=== PATIENT | male | born 1955 | race Two or more races ===

== ENCOUNTER 2020-10-17 07:14 | Emergency (ER) | payer MEDICARE, MEDICAID ==
[~2020-10-17] VITALS: Ht 167.6 cm; Wt 68.9 kg
--- NOTE | 2020-10-17 07:20 | NUR ---
PT BIBRA FROM HOME. PER EMS REPORT PT WAS NOTED BY FAMILY SHORT OF BREATH W WHEEZING. PT APPEARS LETHARGIC. SPANISH SPEAKING. UNABLE TO PROVIDE ANY FURTHER INFORMATION AT THIS TIME. VITALS STABLE W/ SPO2 READING 97% ON RA. AWAITING MD BRUKETT.
--- NOTE | 2020-10-17 07:21 | NUR ---
DR SINGH AT BEDSIDE FOR EVAL.
[2020-10-17] MEDS ORDERED: methylPREDNISolone SOD SUCC 125 MG/2ML VIAL IV ONE (07:30)
[2020-10-17] MEDS ORDERED: IPRATROPIUM NEB FS 0.5 MG/2.5 ML AMPUL.NEB NEB ONE (07:30)
[2020-10-17] MEDS ORDERED: ALBUTEROL FS 2.5 MG/3 ML VIAL.NEB CONTNEB ONE (07:30)
[2020-10-17] MEDS ORDERED: methylPREDNISolone SOD SUCC 125 MG/2ML VIAL ONE (07:35)
--- NOTE | 2020-10-17 07:35 | NUR ---
IV LINE STARTED BLOOD DRAWN AND SENT TO LAB.
[2020-10-17 07:43] LABS: EOSINOPHILS % (AUTO) 6.7 % (0.0-6.0); HEMATOCRIT 40 % (39-51); HEMOGLOBIN 13.7 g/dL (13.5-17.5); LYMPHOCYTES # (AUTO) 1.2 /CMM (0.8-4.8); LYMPHOCYTES % (AUTO) 30.9 % (20.0-44.0); MEAN CORPUSCULAR HGB CONC 35 g/dl (31.0-36.0); MEAN CORPUSCULAR VOLUME 92 fL (80-96); MONOCYTES # (AUTO) 0.4 /CMM (0.1-1.30); MONOCYTES % (AUTO) 9.2 % (2.0-12.0); NEUTROPHILS # (AUTO) 2.1 /CMM (1.8-8.9); NEUTROPHILS % (AUTO) 52.2 % (43.0-81.0); PLATELET COUNT (AUTO) 160 /CMM (150-450); RED BLOOD CELL COUNT(AUTO) 4.32 MIL/uL (4.5-6.0)
--- NOTE | 2020-10-17 07:46 | NUR ---
RADIOLOGY AT BEDSIDE FOR CHEST XRAY.
[2020-10-17 07:47] LABS: CREATININE 0.9 mg/dL (0.6-1.3); POTASSIUM 3.7 mmol/L (3.5-5.1)
[2020-10-17] MEDS ORDERED: PRED50TA PO (07:50)
[2020-10-17] MEDS ORDERED: ALBU8.5H8 INH (07:50)
[2020-10-17 07:51] LABS: CALCIUM, SERUM 8.9 mg/dL (8.5-10.1)
[2020-10-17] MEDS ORDERED: ALBUTEROL FS 2.5 MG/3 ML VIAL.NEB ONE (07:59)
[2020-10-17] MEDS ORDERED: IPRATROPIUM NEB FS 0.5 MG/2.5 ML AMPUL.NEB ONE (07:59)
--- NOTE | 2020-10-17 08:04 | NUR ---
RT AT BEDSIDE FOR BREATHING TREATMENT
--- NOTE | 2020-10-17 08:47 | NUR ---
The patient alert and oriente x4. Patient discharged to home in stable condition. Written and verbal after care instructions given. Patient verbalizes understanding of instruction.
[2020-10-17 08:48] VITALS: BP 137/84
== END 2020-10-17 08:48 | disposition home or self-care (01) ==
LOC: ER 07:27
DX: J98.01 Acute bronchospasm (principal); F17.210 Nicotine dependence, cigarettes, uncomplicated; Z79.899 Other long term (current) drug therapy
CPT/HCPCS: 36415; 71045; 80048; 85025; 93005; 94640 ×2; 96374; 99285; 99406; J2930